=== PATIENT | female | born 1985 | race Caucasian/White ===

== ENCOUNTER 2022-10-23 06:36 | Inpatient (IN) ==
[2022-10-23] MEDS ORDERED: LACTATED RINGER'S 1,000 ML IV SCH ×2 (07:00→08:33)
--- NOTE | 2022-10-23 07:02 | History & Physical Report ---
Date of Service October 23, 2022 Assessment & Plan (1) Delivery by section for breech presentation: Plan: Previous C/S active labor. wishes repeat Repeat section. The patient was counseled to the nature of the procedure including alternatives such as labor. Risks were discussed including bleeding infection injury to bowel bladder ureter vessels and even baby. The risks of internal organ injury were discussed as being higher with prior sections. Deep Vein Thrombosis, pulmonary embolus and breakdown of the incision discussed. Deep vein thrombosis pulmonary embolus hernia and failure of the incision to heal were discussed Patient verbalized understanding of this and was given ample time to ask questions History of Present Illness Primary Care Provider: NO PCP TONY Calculator Estimated Delivery Date Method Current WG Current Estimate 11/01/22 Ultrasound #1 38w 1d C Other Estimates 11/07/22 LMP (Certain) 37w 2d LMP: 01/31/22 : 3 Full term: 1 Premature: 0 Total Number of Induced Abortions: 0 Total Number of Spontaneous Abortions: 1 Ectopics: 0 Multiple births: 0 Number of Living Children: 1 and Delivery Plans COVID POSITIVE 03/20/22 AMA Weekly NST's @ 36 weeks Previous affecting - LTCS per Op report - Repeat at 39 weeks C/S SCHEDULED FOR 10/28/[address] COLIN Need for Rhogam d/t Rh negative mother - Rhogam given 08/18/22- MK Covid Vaccine X 3 Allergies Allergy/AdvReac Type Severity Reaction Status Date / Time No Known Allergies Allergy Verified 10/19/22 15:40 Home Medications Medication Instructions Recorded Confirmed Type prenat.vits,lio,kbf-irea-gpahh 1 tab PO HS 08/20/21 10/19/22 History cholecalciferol (vitamin D3) 50 50 mcg PO HS 09/22/21 10/19/22 History mcg (2,000 unit) capsule (Vitamin D3) omega-3 fatty acids 1,280 mg PO HS 10/19/22 10/19/22 History Patient History Medical History History of COVID-19 03/2022 Migraines hx Surgical History Family history of reaction to anesthesia Mother- "doesn't handle it well" > Has not been put under since age 20s Denies known family hx of MH or pseudocholinesterase deficiency History of D&C 09/2021 Hx of LASIK B/L S/P section hx breech presentation Primary c/s (02/18/18): SAB at [facility] [place] teeth extracted Family History Mother Hypertension Celiac disease Myocardial infarction Father Hypertension Other Dyslipidemia Denies family history of Ovarian cancer Breast cancer Colorectal cancer Social History (Updated 03/31/22 @ 09:59 by Mari Nieto) Smoking Status: Never smoker Second Hand Exposure: No; Do You Dip or Chew Tobacco: No; Hx Substance Use: No Preferred Language: Ukrainian Communication Ability: Effective Visual Impairment: No Limitations Grocery Store Associate Required: No Beliefs That Will Affect Care: None marital status: marital status details: Darell Desir (37) [phone] Current Living Situation: Spouse and Family Current Living Situation Comment: lives with spouse, son, 2 dog, spouse to change litter current occupational status: employed current occupation: [employer] Feels Safe at Home: Yes Assistive Devices: Other Review of Systems as per Subjective / HPI Physical Exam Constitutional: WD/WN, vitals as above well developed and well nourished Respiratory: normal respiratory effort, lungs clear to auscultation normal respiratory effort Cardiovascular: RRR, no murmur, no edema Gastrointestinal (Abdomen): normal bowel sounds, soft, nontender, no hepatosplenomegaly Coding Level of Care Code None Diagnoses Delivery by section for breech presentation O32.1XX0
[2022-10-23] MEDS ORDERED: ceFAZolin 2000MG 2,000 MG/15 ML SYR IV STA (07:05)
[2022-10-23] MEDS ORDERED: CITRIC ACID/SODIUM CITRATE 15 ML UDC ONE (07:21)
--- NOTE | 2022-10-23 07:23 | Anesthesiology Consultation ---
Date of Service October 23, 2022 Assessment & Plan Chart Review Chart Review: Acceptable Risk for Surgery and Patient NOT seen in Pre Admission Testing Consults Requested none ASA ASA2E Proposed Anesthesia Anesthesia Type: Spinal Risk / Benefits Reviewed With: PT / POA / Parent / Guardian, Accepts Plan and Informed Consent Obtained History Surgery Operation Date: 10/23/22 07:45 Proposed Procedures p Section in LD(Bilateral) - Beto Rosenberg MD, FACOG Height/Weight Height: 5 ft 5 in Weight: 72.575 kg Allergies Allergy/AdvReac Type Severity Reaction Status Date / Time No Known Allergies Allergy Verified 10/19/22 15:40 Medications Home Medications Medication Instructions Recorded Confirmed Last Taken prenat.vits,lio,xma-kbrs-lbjor 1 tab PO HS 08/20/21 10/23/22 10/22/22 cholecalciferol (vitamin D3) 50 50 mcg PO HS 09/22/21 10/23/22 10/22/22 mcg (2,000 unit) capsule (Vitamin D3) NPO Date Last Intake of Fluids: 10/23/22 Time Last Intake of Fluids: 06:45 Date Last Intake of Solids: 10/22/22 Time Last Intake of Solids: 20:00 Past Medical History Medical History History of COVID-19 03/2022 Migraines hx Exercise / Class Metabolic Activity II 4-5 Yardwork/Stairs/Walk up hill Past Family History Family History Mother Hypertension Celiac disease Myocardial infarction Father Hypertension Other Dyslipidemia Denies family history of Ovarian cancer Breast cancer Colorectal cancer Past Surgical History Surgical History Family history of reaction to anesthesia Mother- "doesn't handle it well" > Has not been put under since age 20s Denies known family hx of MH or pseudocholinesterase deficiency History of D&C 09/2021 Hx of LASIK B/L S/P section hx breech presentation Primary c/s (02/18/18): SAB at [facility] [place] teeth extracted Past Anesthesia History No Hx of Anesthesia Complications and No Family Hx of Anesthesia Complications History of PONV No Hx of PONV and No Hx of Motion Sickness Social History Smoking Status: Never smoker Do You Dip or Chew Tobacco: No Hx Alcohol Use: No Hx Substance Use: No substance use type: does not use Physical Exam Vital Signs Last Vital Signs Temp 36.6 C 10/23/22 06:55 Pulse 83 10/23/22 07:01 Resp 18 10/23/22 06:55 BP 123/86 10/23/22 07:01 Constitutional no acute distress and not obese ENMT Mouth: no dentition abnormality Thyromental Distance: < 3.5 Finger Breadths Mallampati Class: II Neck normal visual inspection and trachea midline; neck extension not limited Respiratory normal respiratory effort Auscultation: lungs clear to auscultation bilaterally Cardiovascular Rate/Rhythm: regular rate and regular rhythm Heart Sounds: no murmur Musculoskeletal Spine: lumbar spine normal to inspection; normal cervical ROM and no pain with cervical ROM Extremities: full ROM of extremities Neurologic moves all extremities Motor/Sensory: no sensory deficit Psychiatric Orientation: alert and oriented x 3
[2022-10-23] MEDS ORDERED: fentaNYL citrate PF 100 MCG/2 ML VIAL ONE (07:25)
[2022-10-23] MEDS ORDERED: MoRPHine SULFATE PF 1 MG/ML 10 ML AMP/VIAL ONE (07:26)
[2022-10-23 07:40] LABS: Basophils # (auto) 0.07 K/uL (0-0.2); Basophils % (auto) 0.6 %; Eosinophils # (auto) 0.08 K/uL (0-0.50); Eosinophils % (auto) 0.7 %; Hematocrit (blood only) 40.3 % (37.0-47.0); Hemoglobin 14.5 g/dl (12.0-16.0); Immature Granulocytes # (auto) 0.09 K/uL (0.01-0.20); Immature Granulocytes % (auto) 0.7 %; Lymphocytes # (auto) 1.81 K/uL (1.2-3.4); Lymphocytes % (auto) 14.9 %; Mean Corpuscular Hemoglobin 30.7 pg (25.0-34.0); Mean Corpuscular Volume 85.4 fL (80.0-100.0); Mean Platelet Volume 10.4 fL (9.4-12.4); Monocytes # (auto) 0.51 K/uL (0.11-0.59); Monocytes % (auto) 4.2 %; Neutrophils # (auto) 9.55 K/uL (1.40-6.50); Neutrophils % (auto) 78.9 %; Platelet Count 276 K/uL (130-400); RDW Coefficient of Variation 12.9 % (11.5-14.5); RDW Standard Deviation 39.8 fL (36.4-46.3); Red Blood Count 4.72 M/uL (4.20-5.40); White Blood Count 12.11 K/ul (4.8-10.8)
[2022-10-23] MEDS ORDERED: OXYTOCIN 10 UNITS/ML VIAL ONE (07:57)
[2022-10-23] MEDS ORDERED: LACTATED RINGER'S 500 ML IV PRN (08:18)
[2022-10-23] MEDS ORDERED: ONDANSETRON INJ 2 MG/ML 2 ML VIAL IV PRN (08:18)
[2022-10-23] MEDS ORDERED: ePHEDrine sulfate 50 MG/ML AMP IV PRN (08:18)
[2022-10-23] MEDS ORDERED: diphenhydrAMINE 50 MG/ML VIAL IV PRN (08:18)
[2022-10-23] MEDS ORDERED: NALOXONE HCL 0.4 MG/1 ML VIAL/CARP IV PRN (08:18)
[2022-10-23] MEDS ORDERED: NALOXONE HCL 0.08 MG in SYRINGE 1.8 ML IV PRN (08:18)
[2022-10-23] MEDS ORDERED: PROMETHAZINE HCL 25 MG in SODIUM CHLORIDE 0.9% 50 ML IV PRN (08:18)
[2022-10-23] MEDS ORDERED: NALBUPHINE HCL INJ 10 MG/ML AMP IV PRN (08:18)
[2022-10-23] MEDS ORDERED: NALOXONE HCL 1 MG in SODIUM CHLORIDE 0.9% 1000ML 1,000 ML IV PRN (08:18)
[2022-10-23] MEDS ORDERED: MoRPHine SULFATE PF 1 MG/ML 10 ML AMP/VIAL INT SPINAL ONE (08:18)
[2022-10-23] MEDS ORDERED: NO NARCOTICS OR SEDATIVES SCH (08:30)
[2022-10-23] MEDS ORDERED: DC INTRASPINAL MORPHINE SCH (08:30)
[2022-10-23] MEDS ORDERED: SODIUM CHLORIDE 0.9% 1000ML 1,000 ML IV SCH (08:30)
--- NOTE | 2022-10-23 08:31 | Operative Report ---
PG Post Operative Report Pre & Post Diagnosis Operation Date: 10/23/22 07:45 Pre-Op Diagnosis: Previous Caesarean Section Post-Op Diagnosis: Same;Delivery of a live male child at 0804 I identified the patient and participated in the time-out.: Yes Procedure Operation Date: 10/23/22 07:45 Actual Procedures p Section in LD(Bilateral) - Beto Rosenberg MD, FACOG Surgeon Beto Rosenberg MD, FACOG Funeral Professional . Estimated Blood Loss 600 Findings Consistent with Post-Op Diagnosis Specimens Cord blood Description of Procedure Regional anesthetic had been given by anesthesia patient was prepped and draped with a leftward tilt preoperative antibiotics had been given in appropriate timing by anesthesiology. Once the prep was allowed to fully dry timeout was performed. Pickups with teeth were used to test the incision area was found to be adequate for incision as the patient did not feel sharp pain. Scalpel was used to make a Pfannenstiel incision on the lower abdomen. We then cut through the subcutaneous fat down to the level of the anterior rectus sheath fascia this was cut in the midline and then extended laterally with the curved Quick scissors. At this stage we then placed 2 Bill clamps on the anterior aspect of the fascia. Using the curved Quick's we are able to dissect the fascia superiorly away from the rectus muscles. Care was taken to maintain hemostasis. Bill clamps were then placed to the inferior aspect of the anterior sheath of the fascia. Fascia was then dissected away from the rectus muscles inferiorly towards the pubic bone. A Bill was then placed in the midline both inferiorly and superiorly. This was to allow exposure by retraction rectus muscles were in the midline with were then able to cut through the peritoneum and then enter the peritoneal cavity. Opening was enlarged to allow exposure of the peritoneal cavity both superiorly and inferiorly. Once adequate space was obtained a bladder retractor was placed to expose the lower segment Metzenbaums were used to dissect the bladder flap inferiorly away from the uterus. This was done sharply bladder retractor was then repositioned to expose the lower segment of the uterus Fresh scalpel was used to make a low transverse incision on the uterus. Uterus was then entered bluntly with the operators finger, membranes ruptured and the opening was enlarged using the operators fingers bluntly pulling superiorly and inferiorly to allow exposure. Baby was delivered by first flexion of the head elevation of the head out of the pelvis and then pressure by the assistant professor of physics on the maternal abdomen. Baby's head was then delivered mouth and then nares were suctioned and then using gentle traction the baby was fully delivered. Live vigorous infant. Fluid was clear cord clamped and cut cord gases obtained cord blood obtained baby handed to pediatrics. Placenta removed was removed with traction we ensure the entire placenta was removed with a moist lap sponge into the uterus. Loose nuchal cord x1 easily passed over the head should be noted uterus and adnexa were normal Uterus was then exteriorized. IV Pitocin had been started by anesthesia tone improved there were no extensions the uterus was then closed using 0 Monocryl in a 2 layer closure the first layer closed in a running locked fashion from left to right and then a second closure from left to right in a running nonlocked fashion. At this stage hemostasis was excellent. Uterus was placed back in the peritoneal cavity with suction irrigation out and inspection of the uterus at this stage revealed excellent hemostasis Retractors were removed urine color was clear at this stage of the case we inspected the rectus muscles they were hemostatic fascia was closed with 0 Vicryl subcutaneous fat was irrigated and closed with 3-0 Vicryl skin closed with 4-0 subcuticular Monocryl I attest to the content of the Intraoperative Record and any orders documented therein. Any exceptions are noted below. OB Procedure Charges 61250
[2022-10-23] MEDS ORDERED: BENZOCAINE 20% SPRY 85 APPLN/85 GM CAN EXT PRN (08:33)
[2022-10-23] MEDS ORDERED: MAGNESIUM HYDROXIDE SUSP 30 ML UDC PO PRN (08:33)
[2022-10-23] MEDS ORDERED: SENNA 8.6 MG TAB PO PRN (08:33)
[2022-10-23] MEDS ORDERED: DIPHTHERIA/TETANUS/PERTUSSIS Vaccine (Tdap, Age 7+yrs) 0.5mL SYR/VL IM ONE (08:33)
[2022-10-23] MEDS ORDERED: HYDROCORTISONE ACETATE 25 MG SUPP PR PRN (08:33)
[2022-10-23] MEDS: OXYTOCIN 20 UNITS in LACTATED RINGER'S 1,000 ML IV SCH ×2 (09:12→20:38)
--- NOTE | 2022-10-23 09:42 | Anesthesiology Progress Note ---
Date of Service October 23, 2022 Anesthesia Post Procedure Vital Signs Vital Signs: Temp Pulse Resp BP Pulse Ox 10/23/22 09:25 18 10/23/22 09:15 18 10/23/22 09:05 18 10/23/22 08:55 18 10/23/22 08:45 36.7 C 18 10/23/22 09:37 98 10/23/22 09:37 78 10/23/22 09:37 73 105/73 10/23/22 09:32 72 99 10/23/22 09:27 72 99 10/23/22 09:26 77 109/73 10/23/22 09:22 74 99 10/23/22 09:17 72 99 10/23/22 09:16 73 111/72 10/23/22 09:12 77 98 10/23/22 09:07 69 99 10/23/22 09:06 71 111/71 10/23/22 09:02 74 99 10/23/22 08:57 83 99 10/23/22 08:56 77 113/71 10/23/22 08:52 74 99 10/23/22 08:47 97 10/23/22 08:47 79 10/23/22 08:47 73 108/63 10/23/22 08:42 81 97 10/23/22 08:37 96 10/23/22 08:37 74 10/23/22 08:37 77 117/66 10/23/22 07:01 83 123/86 10/23/22 06:55 36.6 C 18 Transfer of Care Handoff Completed per policy Notes Mental Status: alert / awake / arousable Patient Amnestic to Procedure: Yes Nausea / Vomiting: adequately controlled Pain: adequately controlled Airway Patency, RR, SpO2: stable & adequate BP & HR: stable & adequate Hydration State: stable & adequate Neuraxial Anesthesia: was administered and sensory block is resolving Anesthetic Complications: no major complications apparent
[2022-10-23] MEDS: KETOROLAC 30 MG/ML VIAL IV PRN ×3 (10:51→23:26)
[2022-10-23] MEDS: SIMETHICONE 80 MG CHEW PO SCH ×3 (13:29→21:03)
[2022-10-23] MEDS: DOCUSATE SODIUM 100 MG CAP PO SCH (21:03)
[2022-10-24] MEDS: KETOROLAC 30 MG/ML VIAL IV PRN (05:42)
--- NOTE | 2022-10-24 06:18 | Obstetrical Progress Note ---
Date of Service <Pancho Toussaint MD - Last Filed: 10/24/22 10:37> October 24, 2022 Assessment & Plan <Pancho Toussaint MD - Last Filed: 10/24/22 10:37> (1) delivery delivered: Plan - Vital Signs reviewed and WNL. (Tmax at 36.9) Hemoglobin Reviewed. 14.5 (10/23/22) 10.1 (today). - Blood Type: A-, GBS-, Rubella Immune. - Pt is doing well clinically. - Encourage Ambulation, Monitor and Control pain with Motrin PRN, Resume regular diet, Monitor Lochia Encourage Breast Feeding. <Beto Rosenberg MD, FACOG - Last Filed: 10/24/22 14:24> (1) delivery delivered: Subjective <Pancho Toussaint MD - Last Filed: 10/24/22 10:37> Ambulation: limited ambulation (still has Bone in, IVs in, hasn't tried to walk) Voiding: bone catheter in place Passing Gas:: Yes Diet Tolerance:: regular diet Lochia:: Small Feeding Type:: breast feeding Current Pain Level(1-10): 5 (if given pressure) 37 yo F s/p C/S 8/5 day 1 presents with moderate pain with movement or pressure. Max Temp wnl Review of Systems All systems reviewed & are unremarkable except as noted in HPI & below Constitutional: + fatigue; no fever or no chills Respiratory: no dyspnea Cardiovascular: no chest pain or no palpitations Gastrointestinal: no nausea or no vomiting Physical Exam <Pancho Toussaint MD - Last Filed: 10/24/22 10:37> Constitutional WD/WN, vitals as above Respiratory normal respiratory effort, lungs clear to auscultation Cardiovascular RRR, no murmur, no edema Gastrointestinal (Abdomen) normal bowel sounds, soft, nontender, no hepatosplenomegaly (no uterine tenderness noted, firm uterus) Inspection/Auscultation: + abdominal surgical incision (C/S incision without erythema or edema) Musculoskeletal Extremities: extremities normal to inspection (no calf tenderness noted) Skin no rashes, warm and dry Results & Data <Pancho Toussaint MD - Last Filed: 10/24/22 10:37> Vital Signs (Past 12 Hours) Vital Signs Temp Pulse Resp BP Pulse Ox O2 Del Method 10/24/22 05:15 16 100 10/24/22 04:15 14 99 10/24/22 03:15 16 100 10/24/22 03:15 36.7 C 84 18 105/73 100 Room Air 10/24/22 02:15 16 98 10/24/22 01:15 18 98 10/24/22 00:15 16 98 10/23/22 23:15 16 99 10/23/22 23:15 36.6 C 86 16 116/78 99 Room Air 10/23/22 21:21 20 100 10/23/22 20:20 20 100 10/23/22 19:05 20 99 10/23/22 19:05 36.9 C 76 20 107/69 99 Room Air 10/23/22 18:20 20 98 <Beto Rosenberg MD, FACOG - Last Filed: 10/24/22 14:24> Co-Signing Physician Notes Resident Physician Supervision Note: I was present with DrCharan [Name of resident] during the history and exam. I discussed the case with the resident and agree with the findings and plan as do cumented in the note. Any exceptions or clarifications are listed here: [None] Documented By: Beto Rosenberg MD, FACOG
[2022-10-24 06:19] LABS: Basophils # (auto) 0.08 K/uL (0-0.2); Basophils % (auto) 0.6 %; Eosinophils # (auto) 0.29 K/uL (0-0.50); Eosinophils % (auto) 2.3 %; Hematocrit (blood only) 28.5 % (37.0-47.0); Hemoglobin 10.1 g/dl (12.0-16.0); Immature Granulocytes # (auto) 0.07 K/uL (0.01-0.20); Immature Granulocytes % (auto) 0.5 %; Lymphocytes # (auto) 2.47 K/uL (1.2-3.4); Lymphocytes % (auto) 19.2 %; Mean Corpuscular Hemoglobin 31.5 pg (25.0-34.0); Mean Corpuscular Hgb Conc 35.4 g/dL (32.0-36.0); Mean Corpuscular Volume 88.8 fL (80.0-100.0); Mean Platelet Volume 10.4 fL (9.4-12.4); Monocytes # (auto) 0.73 K/uL (0.11-0.59); Monocytes % (auto) 5.7 %; Neutrophils # (auto) 9.21 K/uL (1.40-6.50); Neutrophils % (auto) 71.7 %; Platelet Count 209 K/uL (130-400); RDW Coefficient of Variation 13.2 % (11.5-14.5); RDW Standard Deviation 43.1 fL (36.4-46.3); Red Blood Count 3.21 M/uL (4.20-5.40); White Blood Count 12.85 K/ul (4.8-10.8)
[2022-10-24] MEDS ORDERED: KETOROLAC 30 MG/ML VIAL IV PRN (08:17)
[2022-10-24] MEDS ORDERED: PROMETHAZINE HCL 25 MG in SODIUM CHLORIDE 0.9% 50 ML IV PRN (08:17)
[2022-10-24] MEDS ORDERED: diphenhydrAMINE 50 MG/ML VIAL IV PRN (08:17)
[2022-10-24] MEDS ORDERED: ONDANSETRON INJ 2 MG/ML 2 ML VIAL IV PRN (08:17)
[2022-10-24] MEDS ORDERED: diphenhydrAMINE Capsule 25 MG CAP PO PRN (08:18)
[2022-10-24] MEDS: PRENATAL VITAMIN 1 TAB PO SCH (09:06)
[2022-10-24] MEDS: DOCUSATE SODIUM 100 MG CAP PO SCH ×2 (09:06→19:49)
[2022-10-24] MEDS: FERROUS SULFATE 325 MG TAB PO SCH (09:06)
[2022-10-24] MEDS: oxyCODONE/ACETAMINOPHEN 5mg/325mg TAB PO PRN ×4 (09:07→23:56)
[2022-10-24] MEDS: IBUPROFEN 600 MG TAB PO PRN ×4 (09:07→23:56)
[2022-10-24] MEDS: SIMETHICONE 80 MG CHEW PO SCH ×4 (09:07→19:49)
[2022-10-24] MEDS ORDERED: bisacodyL 5 MG TABEC PO SCH (20:00)
[2022-10-25] MEDS: oxyCODONE/ACETAMINOPHEN 5mg/325mg TAB PO PRN ×4 (04:31→16:11)
[2022-10-25] MEDS: IBUPROFEN 600 MG TAB PO PRN ×4 (04:31→16:11)
--- NOTE | 2022-10-25 05:37 | Obstetrical Progress Note ---
Date of Service <Pancho Toussaint MD - Last Filed: 10/25/22 07:51> October 25, 2022 Assessment & Plan <Pancho Toussaint MD - Last Filed: 10/25/22 07:51> (1) delivery delivered: Plan - Vital Signs reviewed and WNL. (Tmax at 36.9) Hemoglobin Reviewed. 14.5 (10/23/22) 10.1 (10/24/22), 10.2 (10/25/22). - Blood Type: A-, GBS-, Rubella Immune. - Pt is doing well clinically. - Encourage Ambulation, Monitor and Control pain with Motrin PRN, Resume regular diet, Monitor Lochia Encourage Breast Feeding. - Patient counselled on discharge instructions. <Jerilyn Valladares MD - Last Filed: 10/25/22 08:08> (1) delivery delivered: Subjective <Pancho Toussaint MD - Last Filed: 10/25/22 07:51> Ambulation: ambulating normally Voiding: no voiding problems and no incontinence Passing Gas:: Yes Diet Tolerance:: regular diet Lochia:: Moderate Feeding Type:: breast feeding Current Pain Level(1-10): 2 (primarily at incision site) 37 yo F s/p C/S day 3 Constitutional: + fatigue; no fever or no chills Respiratory: no dyspnea Cardiovascular: no chest pain or no palpitations Gastrointestinal: no nausea or no vomiting Musculoskeletal: no swelling or no myalgia Physical Exam <Pancho Toussaint MD - Last Filed: 10/25/22 07:51> Constitutional WD/WN, vitals as above Respiratory normal respiratory effort, lungs clear to auscultation Cardiovascular RRR, no murmur, no edema Gastrointestinal (Abdomen) normal bowel sounds, soft, nontender, no hepatosplenomegaly (no uterine tenderness noted, firm uterus) Inspection/Auscultation: + abdominal surgical incision (C/S incision without erythema or edema) Musculoskeletal Extremities: extremities normal to inspection (no calf tenderness noted) Skin no rashes, warm and dry Results & Data <Pancho Toussaint MD - Last Filed: 10/25/22 07:51> Vital Signs (Past 12 Hours) Vital Signs Temp Pulse Resp BP Pulse Ox O2 Del Method 10/24/22 23:44 36.5 C 77 18 110/74 98 Room Air 10/24/22 20:21 36.6 C 89 18 120/79 98 Room Air <Jerilyn Valladares MD - Last Filed: 10/25/22 08:08> Co-Signing Physician Notes Resident Physician Supervision Note: I interviewed and examined the patient. Discussed with Dr. Toussaint and agree with findings and plan as documented in the note. Any exceptions or clarifications are listed here: [ ] Documented By: Jerilyn Valladares MD, FACOG
[2022-10-25 07:02] LABS: Hematocrit (blood only) 29.6 % (37.0-47.0); Hemoglobin 10.2 g/dl (12.0-16.0)
[2022-10-25] MEDS: DOCUSATE SODIUM 100 MG CAP PO SCH (07:42)
[2022-10-25] MEDS: FERROUS SULFATE 325 MG TAB PO SCH (07:43)
[2022-10-25] MEDS: PRENATAL VITAMIN 1 TAB PO SCH (07:43)
[2022-10-25] MEDS: SIMETHICONE 80 MG CHEW PO SCH ×2 (07:45→12:39)
[2022-10-25] MEDS ORDERED: bisacodyL 10 MG SUPP PR PRN (08:28)
--- NOTE | 2022-10-27 10:48 | Discharge Summary ---
Date of Service October 27, 2022 Admission HPI Per Admitting Provider TONY Calculator Estimated Delivery Date Method Current WG Current Estimate 11/01/22 Ultrasound #1 38w 1d Other Estimates 11/07/22 LMP (Certain) 37w 2d LMP: 01/31/22 : 3 Full term: 1 Premature: 0 Total Number of Induced Abortions: 0 Total Number of Spontaneous Abortions: 1 Ectopics: 0 Multiple births: 0 Number of Living Children: 1 and Delivery Plans COVID POSITIVE 03/20/22 AMA Weekly NST's @ 36 weeks Previous affecting - LTCS per Op report - Repeat at 39 weeks C/S SCHEDULED FOR 10/28/[address] COLIN Need for Rhogam d/t Rh negative mother - Rhogam given 08/18/22- MK Covid Vaccine X 3 Admission Exam (Per Admitting) Constitutional WD/WN, vitals as above well developed and well nourished Respiratory normal respiratory effort, lungs clear to auscultation normal respiratory effort Cardiovascular RRR, no murmur, no edema Gastrointestinal (Abdomen) normal bowel sounds, soft, nontender, no hepatosplenomegaly Discharge Data Consultations 10/23/22 06:58 Consult Anesthesiology Stat Procedures Performed Operation Date: 10/23/22 07:45 Actual Procedures p Section in LD(Bilateral) - Beto Rosenberg MD, FACOG Hospital Course (1) delivery delivered: Plan - Vital Signs reviewed and WNL. (Tmax at 36.9) Hemoglobin Reviewed. 14.5 (10/23/22) 10.1 (10/24/22), 10.2 (10/25/22). - Blood Type: A-, GBS-, Rubella Immune. - Pt is doing well clinically. - Encourage Ambulation, Monitor and Control pain with Motrin PRN, Resume regular diet, Monitor Lochia Encourage Breast Feeding. - Patient counselled on discharge instructions. Supervising Physician Co-Signing Physician Notes Resident Physician Supervision Note: I interviewed and examined the patient. Discussed with Dr. Toussaint and agree with findings and plan as documented in the note. Any exceptions or clarifications are listed here: [ ] Documented By: Jerilyn Valladares MD, FACOG Coding Level of Care Code None Diagnoses delivery delivered O82
== END 2022-10-25 16:58 | disposition home or self-care (01) | DRG 788 ==
LOC: OPB 06:36 → 4S1 06:41 → 4E2 12:11
DX: O32.1XX0 Maternal care for breech presentation, not applicable or unspecified; Z37.0 Single live birth; Z3A.38 38 weeks gestation of pregnancy